=== PATIENT | male | born 1965 | race Caucasian/White ===

== ENCOUNTER → 2016-07-11 | Outpatient (REF) | payer OTHER | LOC: M LAB REF 16:30 | PROVIDERS: ATTEND Physician Assistant | DX: L02.01 Cutaneous abscess of face (principal) ==

== ENCOUNTER → 2016-12-29 | Outpatient (REF) | payer OTHER ==
[2016-12-29 12:59] LABS: ALBUMIN 3.8 GM/DL (3.2-5.2); ALBUMIN/GLOBULIN RATIO 1.03 (1.00-1.93); ALKALINE PHOSPHATASE 65 U/L (45-117); ALT/SGPT 39 U/L (12-78); ANION GAP 6 MEQ/L (8-16); AST/SGOT 23 U/L (15-37); BILIRUBIN,TOTAL 0.5 MG/DL (0.2-1.0); BLOOD UREA NITROGEN 21 MG/DL (7-18); CARBON DIOXIDE LEVEL 27 MEQ/L (21-32); CHLORIDE LEVEL 108 MEQ/L (98-107); CHOLESTEROL LEVEL 179 MG/DL (<200); FREE T4 1.01 NG/DL (0.76-1.46); GLOMERULAR FILTRATION RATE > 60.0 (>56); GLUCOSE, FASTING 80 MG/DL (70-105); POTASSIUM SERUM 4.4 MEQ/L (3.5-5.1); SODIUM LEVEL 141 MEQ/L (136-145); TOTAL PROTEIN 7.5 GM/DL (6.4-8.2); TRIGLYCERIDES LEVEL 87 MG/DL (<150)
[2016-12-29 13:03] LABS: LYMPH % 29.4 % (24.0-44.0); MEAN CORPUSCULAR HEMOGLOBIN 29.6 pg (27.0-33.0); MEAN CORPUSCULAR HGB CONC 34.8 g/dl (32.0-36.5); MEAN CORPUSCULAR VOLUME 85.1 fl (80.0-96.0); MONO % 8.9 % (0.0-5.0); NEUTROPHILS % 59.1 % (36.0-66.0); PLATELET COUNT, AUTOMATED 234 k/mm3 (150-450); RED CELL DISTRIBUTION WIDTH 12.9 % (11.5-14.5)
[2016-12-29 13:04] LABS: ADD MANUAL DIFFER NO; ADD MORPHOLOGY? NO; BASO # 0.1 K/mm3 (0.0-0.2); DIFF SLIDE NUMBER 146; LARGE UNSTAINED CELL # 0.1 K/mm3 (0.0-0.4); LARGE UNSTAINED CELL % 1.5 % (0.0-4.0); LYMPH # 1.8 K/mm3 (1.5-4.5); MONO # 0.5 K/mm3 (0.0-0.8); NEUTROPHILS # 3.6 K/mm3 (1.8-7.7)
== END ==
LOC: M SFHCPLAZ 08:32
PROVIDERS: ATTEND Nurse Practitioner Family
DX: B99.9 Unspecified infectious disease (principal); Z13.1 Encounter for screening for diabetes mellitus; Z13.220 Encounter for screening for lipoid disorders

== ENCOUNTER 2017-04-10 12:16 | Day surgery (SDC) | payer BC, OTHER ==
[~2017-04-10] VITALS: Ht 182.9 cm; Wt 112.5 kg
[~2017-04-10 12:16] MED LIST: PROPOFOL 200 MG/20 ML VIAL As Ordered ONE
[2017-04-10] MEDS ORDERED: NS 1,000 ML IV ONE (12:45)
--- NOTE | 2017-04-10 13:17 | ROOR ---
Patient Name: Jovan Pederson Procedure Date: 04/10/2017 12:58 PM Date of : 1965 Age: 51 Room: [facility] Gender: Male Note Status: Finalized Procedure: Colonoscopy Indications: Screening for colorectal malignant neoplasm Providers: Arun MELARA MD Referring MD: Ofe Otoole [facility] Requesting Provider: Medicines: Monitored Anesthesia Care Complications: No immediate complications. Procedure: Pre-Anesthesia Assessment: - The heart rate, respiratory rate, oxygen saturations, blood pressure, adequacy of pulmonary ventilation, and response to care were monitored throughout the procedure. The Colonoscope was introduced through the anus and advanced to the cecum, identified by appendiceal orifice and ileocecal valve. The colonoscopy was performed without difficulty. The patient tolerated the procedure well. The quality of the bowel preparation was good. Findings: The perianal and digital rectal examinations were normal. Two pedunculated polyps were found in the mid sigmoid colon and distal sigmoid colon. The polyps were 5 mm in size. These polyps were removed with a cold snare. Resection and retrieval were complete. To prevent bleeding after the polypectomy, two hemostatic clips were successfully placed. There was no bleeding at the end of the procedure. A 4 mm polyp was found in the splenic flexure. The polyp was sessile. The polyp was removed with a cold snare. Resection and retrieval were complete. Small Internal Hemorrhoids. The exam was otherwise without abnormality on direct and retroflexion views. Impression: - Two 5 mm polyps in the mid sigmoid colon and in the distal sigmoid colon, removed with a cold snare. Resected and retrieved. Clips were placed. - One 4 mm polyp at the splenic flexure, removed with a cold snare. Resected and retrieved. - Small Internal Hemorrhoids. - The examination was otherwise normal on direct and retroflexion views. Recommendation: - Repeat colonoscopy in 3 years for surveillance. Arun Melara MD Arun MELARA MD 04/10/2017 1:17:19 PM This report has been signed electronically. Number of Addenda: 0 Note Initiated On: 04/10/2017 12:58 PM Estimated Blood Loss: Estimated blood loss: none.
== END 2017-04-10 13:54 | disposition home or self-care (01) ==
LOC: M OPP 12:16
PROVIDERS: ATTEND Internal Medicine Gastroenterology
DX: Z12.11 Encounter for screening for malignant neoplasm of colon (principal); D12.5 Benign neoplasm of sigmoid colon; D12.3 Benign neoplasm of transverse colon; K64.8 Other hemorrhoids; Z86.14 Personal history of Methicillin resistant Staphylococcus aureus infection

== ENCOUNTER → 2020-05-26 | Outpatient (REF) | payer OTHER ==
[2020-05-26 15:14] LABS: APPEARANCE, URINE CLOUDY (CLEAR); BACTERIA, URINE AUTO NEGATIVE (NEGATIVE); BILIRUBIN, URINE AUTO NEGATIVE (NEGATIVE); BLOOD, URINE BLOOD 3+ (NEGATIVE); COLOR, URINE AMBER (YELLOW); GLUCOSE, URINE (UA) AUTO NEGATIVE (NEGATIVE); KETONE, URINE AUTO NEGATIVE (NEGATIVE); LEUKOCYTE ESTERASE, URINE AUTO NEGATIVE (NEGATIVE); MUCUS, URINE MODERATE (NEGATIVE); NITRITE, URINE AUTO NEGATIVE (NEGATIVE); PROTEIN, URINE AUTO 1+ mg/dL (NEGATIVE); RBC, URINE AUTO 106 /HPF (0-3); SPECIFIC GRAVITY URINE AUTO 1.027 (1.002-1.035); SQUAMOUS EPITHELIAL CELL UR AU 0 /HPF (0-6); UROBILINOGEN, URINE AUTO 0.2 mg/dL (0.0-2.0); WBC, URINE AUTO 4 /HPF (0-3)
[2020-05-26 15:18] LABS: BASO # 0.1 10^3/uL (0.0-0.2); BASO % 0.7 % (0.0-1.0); EOS # 0.2 10^3/uL (0.0-0.5); EOS % 2.3 % (0.0-3.0); HEMATOCRIT 48.4 % (42.0-52.0); HEMOGLOBIN 16.3 g/dl (13.5-17.5); LYMPH # 2.1 10^3/uL (1.5-5.0); LYMPH % 28.4 % (24.0-44.0); MEAN CORPUSCULAR HEMOGLOBIN 29.5 pg (27.0-33.0); MEAN CORPUSCULAR HGB CONC 33.7 g/dl (32.0-36.5); MEAN CORPUSCULAR VOLUME 87.5 fl (80.0-96.0); MONO # 0.6 10^3/uL (0.0-0.8); NEUTROPHILS # 4.4 10^3/uL (1.5-8.5); NEUTROPHILS % 60.5 % (36.0-66.0); PLATELET COUNT, AUTOMATED 322 10^3/uL (150-450); RED BLOOD COUNT 5.53 10^6/uL (4.30-6.10); WHITE BLOOD COUNT 7.3 10^3/uL (4.0-10.0)
[2020-05-26 15:53] LABS: ALBUMIN 3.8 GM/DL (3.2-5.2); ALT/SGPT 60 U/L (12-78); BILIRUBIN,TOTAL 0.6 MG/DL (0.2-1.0); BLOOD UREA NITROGEN 15 MG/DL (7-18); CARBON DIOXIDE LEVEL 30 MEQ/L (21-32); CHLORIDE LEVEL 106 MEQ/L (98-107); CREATININE FOR GFR 1.15 MG/DL (0.70-1.30); GLOMERULAR FILTRATION RATE > 60.0 (>56); GLUCOSE, FASTING 82 MG/DL (70-100); POTASSIUM SERUM 4.2 MEQ/L (3.5-5.1); SODIUM LEVEL 139 MEQ/L (136-145); TOTAL PROTEIN 8.3 GM/DL (6.4-8.2)
[2020-05-26 16:00] LABS: ERYTHROCYTE SEDIMENTATION RATE 18 mm/hr (0-20)
== END ==
LOC: M SFHCPLAZ 14:01
PROVIDERS: ATTEND Nurse Practitioner Family
DX: R31.0 Gross hematuria (principal); G43.009 Migraine without aura, not intractable, without status migrainosus

== ENCOUNTER → 2020-06-12 | Outpatient (CLI) | payer BC, OTHER ==
[~2020-06-12] MED LIST changes: +ISOVUE-370 76% 100ML VIAL As Ordered ONE; -PROPOFOL 200 MG/20 ML VIAL As Ordered ONE
--- NOTE | 2020-06-14 04:01 | REP ---
INDICATION: GROSS HEMATURIA. COMPARISON: None TECHNIQUE: Axial precontrast, contrast-enhanced and delayed images from the lung bases to the pubic symphysis using 100 cc Isovue 370 intravenous contrast material. Coronal and sagittal reformations obtained. This CT examination was performed using the following dose reduction techniques: Automated exposure control, adjustment of mA and/or kv according to the patient's size, and the use of iterative reconstruction technique. FINDINGS: The kidneys demonstrate relatively symmetric cortical lobulations along with 1.7 cm simple right cortical cyst and 9 mm simple cortical left renal cyst. No hydroureteronephrosis, nephroureterolithiasis, perinephric stranding or obvious renal mass lesion. Kidneys demonstrate symmetric enhancement and symmetric excretion to the collecting system. Liver demonstrates mild diffuse fatty infiltration without focal hepatic lesion. The spleen, pancreas, gallbladder, and bilateral adrenal glands are normal. The enteric system including stomach, small, and large bowel appears normal. No evidence for obstruction or acute inflammatory process. Normal terminal ileum and appendix are identified in the right lower quadrant. Scattered colonic diverticula noted without acute diverticulitis. Pelvis demonstrates normal bladder and mildly prominent prostate gland measuring 4.6 cm diameter. Small fat containing inguinal hernias are suggested. No ascites. No free air. No intraperitoneal or retroperitoneal adenopathy. Abdominal aorta and vasculature appear normal. Musculoskeletal structures are intact and without acute osseous abnormality. Lung bases are clear. Visualized heart and pericardium normal. IMPRESSION: 1. Kidneys include solitary bilateral benign appearing cysts. No further urinary tract pathology appreciated. 2. Mild hepatosteatosis. 3. Colonic diverticula without acute diverticulitis. 4. Prominent prostate gland. <Electronically signed by Mode Walden > 06/14/20 [id number]
== END ==
LOC: M RAD 07:51
PROVIDERS: ATTEND Specialist
DX: N28.1 Cyst of kidney, acquired (principal); R31.0 Gross hematuria
CPT/HCPCS: 74178; Q9967

== ENCOUNTER → 2020-06-28 | Outpatient (CLI) | payer BC, OTHER | END | disposition home or self-care (01) | LOC: M LABSMTC 09:26 | PROVIDERS: ATTEND Anesthesiology | DX: Z01.812 Encounter for preprocedural laboratory examination (principal); Z11.52 Encounter for screening for COVID-19 ==

== ENCOUNTER → 2020-07-01 | Outpatient (CLI) | payer BC, OTHER ==
--- NOTE | 2020-07-01 16:08 | REPPI ---
INDICATION: M54.2 NECK PAIN. COMPARISON: None. TECHNIQUE: Eight views cervical spine performed. FINDINGS: There is no compression fracture. There is normal alignment and the cervical lordosis with no prevertebral soft tissue swelling. There is no subluxation with flexion and extension. Mild anterior spurring and ligamentous calcification is seen diffusely. There is mild disc space narrowing and subchondral sclerosis at C6-7. There is diffuse narrowing, spurring and sclerosis at the posterior facet joints. There may be mild bilateral foraminal narrowing at C6-7 due to uncovertebral spurring. IMPRESSION: Relatively mild diffuse degenerative changes most significantly at C6-7 as discussed above. <Electronically signed by Orestes Up > 07/01/20 [id number]
== END ==
LOC: M PLAIMG 11:40
PROVIDERS: ATTEND Nurse Practitioner Family
DX: M50.323 Other cervical disc degeneration at C6-C7 level (principal)

== ENCOUNTER 2020-07-03 10:58 | Day surgery (SDC) | payer BC, OTHER ==
[~2020-07-03] VITALS: Ht 182.9 cm; Wt 116.9 kg
[~2020-07-03 10:58] MED LIST changes: -ISOVUE-370 76% 100ML VIAL As Ordered ONE; +NS 1,000 ML IV ONE
--- OUTSIDE RECORDS SUMMARY | 2020-07-03 11:02 | CCD | Continuity of Care Document ---
Author Author Jovan [facility] Organization Unknown Address [address], [address] [place] [address] Phone [phone] Care Team Providers Care Ammonia Box Operator Name Role Phone Rylee Whiteside AUTM Problems Description No Active Problems Social History Type Date Description Comments Sex Unknown ETOH Use 1-2 A Week Tobacco Use Start: Unknown Non Smoker Recreational Drug Use Denies Drug Use Allergies, Adverse Reactions, Alerts Description No Known Drug Allergies Medications Active Medications SIG Qnty Indications Ordering Provide r Date Clenpiq 10-3.5-12mg-GM -GM/160ML S olution take as directed per doctor's bowel prep instructions. 320ml Z12.1 1 Arun Melara MD 04/15/2020 Milk Of Magnesia 1200mg/15ML Suspe nsion take 45 milliliters by mouth as directed on colonoscopy prep sheet. Z12.11 Arun Melara MD 04/15/2020 History Medications No Active Medications Unknown 01/2020 - 04/15/2020 Immunizations Description No Information Available Vital Signs Date Vital Result Comment 04/15/2020 8:32am BP Systolic 142 mmHg BP Diastolic 92 mmHg Height 72 inches 6'0" Weight 258.00 lb BMI (Body Mass Index) 35.0 kg/m2 [place] Body Weight 178 lb Weight 117.029 kg BSA (Body Surface Area) 2.37 m2 03/07/2017 10:58am BP Systolic 162 mmHg BP Diastolic 92 mmHg Height 72 inches 6'0" Weight 250.00 lb BMI (Body Mass Index) 33.9 kg/m2 [place] Body Weight 178 lb Weight 113.400 kg BSA (Body Surface Area) 2.34 m2 Results Description No Information Available Procedures Description No Information Available Medical Devices Description No Information Available Encounters Description No Information Available Assessments Date Code Description Provider 04/15/2020 Z12.11 Encounter for screening for tanya gnant neoplasm of colon Mindy Margarette SELINA Mccain 04/15/2020 Z86.010 Personal history of colonic poly ps Mindy Margarette SELINA Mccain Plan of Treatment 04/15/2020 - Mindy Margarette SELINA Mccain* Z12.11 Encounter for screening for malignant neoplasm of colon * Z86.010 Personal history of colonic polyps * * New Medication:* Clenpiq 10-3.5-12 mg-GM -GM/160ML * Milk Of Magnesia 1200 mg/15ML * New Orders:* Colonoscopy, Ordered: 04/15/20 * Comments:* Will arrange for colonoscopy. Reviewed risks and benefits of the procedure, as well as other options, with the patient. Bowel prep procedure was discussed with patient, as well as risks and side effects associated with the bowel prep. Patient verbalized understanding of all of the above and is in agreement to proceed. Patient will seek medical attention for any acute changes. Will monitor. * Follow up:* As scheduled, sooner if needed. Functional Status Description No Information Available Mental Status Description No Information Available Referrals Description No Information Available
--- OUTSIDE RECORDS SUMMARY | 2020-07-03 11:02 | CCD ---
Author Author [facility] Organization [facility] Address Unknown Phone Unavailable Care Team Providers Care Automotive Machinist Name Role Phone Sonia Duenas PROBLEMS Type Condition ICD9-CM Code [id number] Code Onset Dates Condition S tatus SNOMED Code Notes Problem Migraine without aura and without status migrain osus, not intractable G43.009 Active 726993251 Problem Gross hematuria R31.0 Active 140964861 ALLERGIES No Known Allergies ENCOUNTERS from 1965 to 2020-05-30 Encounter Location Date Provider Diagnosis [address] [address] May, 021 Sonia Duenas Gross hematuria R31.0 and Migraine without aura and without status migrainosus, not intractable G43.009 IMMUNIZATIONS Vaccine Route Administration Date Status Influenza (6mo & up) Fluzone Unknown Feb 06, 2017 Ref used SOCIAL HISTORY Tobacco Use: Social History Observation Description Date Details (start date - stop date) Never Smoker Sex Assigned At : Social History Observation Description Sex Assigned At Unknown Education: Question Answer Notes Level of Education: Finished High School Audit Question Answer Notes Total Score: 1 Interpretation: Alcohol Education Language: Question Answer Notes Languages spoken: Czech Baptist: Question Answer Notes Baptist 21 Scientology Sexual Hx: Question Answer Notes Had sex in the last 12 months (vaginal, oral, or anal)? No Have you ever had an STD? No Drug and Alcohol Question Answer Notes Total Score: 0 Interpretation: No problems reported Alcohol Screening: Question Answer Notes Did you have a drink containing alcohol in the past year? Ye s Points 1 Interpretation Negative How often did you have six or more drinks on one occas ion in the past year? Never (0 points) How many drinks did you have on a typica l day when you were drinking in the past year? 1 or 2 (0 points) How often did you have a drink containing alcohol in t he past year? Monthly or less (1 point) BMI Care Goal Follow-Up Question Answer Notes Above Normal BMI Follow-Up Lifestyle education regarding t Tobacco Use: Question Answer Notes Are you a: never smoker never smoker REASON FOR REFERRAL No Information VITAL SIGNS Weight 264 lbs May, Height 72 in May, BMI 35.80 kg/m2 May, Heart Rate 90 /min May, Respiratory Rate 20 /min May, Temperature 98.2 degrees Fahrenheit May, Oximetry 96 May, Blood pressure systolic 134 mm Hg May, Blood pressure diastolic 80 mm Hg May, MEDICATIONS Medication SIG (Take, Route, Frequency, Duration) Notes Start Da te End Date Status Chlorhexidine Gluconate 4 % as directed Externally: neck MWF for 30 day(s) Not-Taking PROCEDURES No Information RESULTS Component Value Reference Range CBC with Differential Reviewed date:05/27/2020 07:52:59 Interpretation: Performing Lab:[facility] [address] [address] , ,[place] [address] WHITE BLOOD COUNT 7.3 4.0-10.0 RED BLOOD COUNT 5.53 4.30-6.10 HEMOGLOBIN 16.3 13.5-17.5 HEMATOCRIT 48.4 42.0-52.0 MEAN CORPUSCULAR VOLUME 87.5 80.0-96.0 MEAN CORPUSCULAR HEMOGLOBIN 29.5 27.0-33.0 MEAN CORPUSCULAR HGB CONC 33.7 32.0-36.5 RED CELL DISTRIBUTION WIDTH 12.4 11.5-14.5 PLATELET COUNT, AUTOMATED 322 150-450 NEUTROPHILS % 60.5 36.0-66.0 LYMPH % 28.4 24.0-44.0 MONO % 8.0 0.0-5.0 EOS % 2.3 0.0-3.0 BASO % 0.7 0.0-1.0 NEUTROPHILS # 4.4 1.5-8.5 LYMPH # 2.1 1.5-5.0 MONO # 0.6 0.0-0.8 EOS # 0.2 0.0-0.5 BASO # 0.1 0.0-0.2 Comprehensive Metabolic Profile (CMP) Reviewed date:05/27/2020 07:52:59 Interpretation: Performing Lab:[facility] [address] [place] [id number] , ,[place] [id number] GLUCOSE, FASTING 82 70-100 BLOOD UREA NITROGEN 15 7-18 CREATININE FOR GFR 1.15 0.70-1.30 GLOMERULAR FILTRATION RATE > 60.0 >56 SODIUM LEVEL 139 136-145 POTASSIUM SERUM 4.2 3.5-5.1 CHLORIDE LEVEL 106 98-107 CARBON DIOXIDE LEVEL 30 21-32 CALCIUM LEVEL 9.0 8.5-10.1 AST/SGOT 35 7-37 ALT/SGPT 60 12-78 ALKALINE PHOSPHATASE 91 45-117 BILIRUBIN,TOTAL 0.6 0.2-1.0 TOTAL PROTEIN 8.3 6.4-8.2 ALBUMIN 3.8 3.2-5.2 ALBUMIN/GLOBULIN RATIO 0.8 ERYTHROCYTE SEDIMENTATION RATE Reviewed date:05/27/2020 07:52:59 Interpretation: Performing Lab:[facility] [address] [place] [id number] , ,[place] [address] ERYTHROCYTE SEDIMENTATION RATE 18 0-20 PSA SCREENING Reviewed date:05/27/2020 07:52:59 Interpretation: Performing Lab:[facility] [address] [place] [address] , ,[place] [address] PSA SCREENING 0.95 < 4.00 URINE CULTURE Reviewed date:05/27/2020 17:17:01 Interpretation:Negative Performing Lab:[facility] [address] [place] [address] , ,[place] [id number] UA URINALYSIS Reviewed date:05/27/2020 07:52:59 Interpretation: Performing Lab:[facility] [address] [facility] [id number] , ,[place] [id number] 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, No flu shot MEDICAL (GENERAL) HISTORY Type Description Date Medical History headaches Surgical History Tonsilectomy age 6 Surgical History All four wisdom teeth extracted early 18 s Surgical History colonoscopy with polyps - adenomatous, R eindl, repeat 3YRS 04/10/17 Goals Section No Information Health Concerns No Information MEDICAL EQUIPMENT No Information MENTAL STATUS No Information FUNCTIONAL STATUS No Information ASSESSMENTS Encounter Date Diagnosis Assessment Notes Treatment Notes Treatm ent Clinical Notes May, Gross hematuria (ICD-10 - R31.0) advised labs and urine today - f/up as indicated May, Migraine without aura and wi thout status migrainosus, not intractable (ICD-10 - G43.009) check labs, advised to keep diary of headaches, given list of migraine triggers. Consider neurology referral PLAN OF TREATMENT Treatment Notes Assessment Notes Clinical Notes Gross hematuria advised labs and urine today - f/up as i ndicated Migraine without aura and without status migrainosus, not intractable check labs, advised to keep diary of headaches, given list of migraine triggers. Consider neurology referral Treatment Notes Test Name Order Date NON PLASTER PATTERN CASTER CYTOLOGY REQ FOR SERVI 2020-05-30 Next Appt Details 2-3 Weeks(30min) Reason:f/u after labs Provider Name:Nati Gómez, 01:30:00 PM, [address], [place], [address], Provider Name:Sonia Duenas, 2020-07-01 11:0 0:00 AM, [address] [place], [address], Follow Up:2-3 Weeks(30min)f/u after labs Insurance Providers Payer Name Payer Address Payer Phone Insured Name Patient Relati onship to Insured Coverage Start Date Coverage End Date [facility] [address] [facility] [id number] JOVAN FELICIANO self
--- OUTSIDE RECORDS SUMMARY | 2020-07-03 11:02 | CCD ---
Author Author [facility] Organization [facility] Address Unknown Phone Unavailable Care Team Providers Care Hot Mill Roller Name Role Phone Rico Nati Unavailable PROBLEMS Type Condition ICD9-CM Code TJO62-OD Code Onset Dates Condition S tatus W/U Status Risk SNOMED Code Notes Problem Gross hematuria R31.0 Active confirmed [id number] Problem Erectile dysfunction, unspecified erectile dysfunction typ e N52.9 Active confirmed [id number] Problem Migraine without aura and without status migrain osus, not intractable G43.009 Active confirmed 846557952 ALLERGIES No Known Allergies ENCOUNTERS from 1965 to 2020-06-12 Encounter Location Date Provider Diagnosis [facility] [address] [place] [address] Jun Nati Gómez Gross hematuria R31.0 and Erectile dysfu nction, unspecified erectile dysfunction type N52.9 IMMUNIZATIONS Vaccine Route Administration Date Status Influenza (6mo & up) Fluzone Unknown Feb 06, 2017 Ref used SOCIAL HISTORY Tobacco Use: Social History Observation Description Date Details (start date - stop date) Uses tobacco in other forms Sex Assigned At : Social History Observation Description Sex Assigned At Unknown Education: Question Answer Notes Level of Education: Finished High School Audit Question Answer Notes Interpretation: Alcohol Education Total Score: 1 Language: Question Answer Notes Languages spoken: Spanish Mormonism: Question Answer Notes Mormonism 21 Confucianism Sexual Hx: Question Answer Notes Had sex in the last 12 months (vaginal, oral, or anal)? No Have you ever had an STD? No Drug and Alcohol Question Answer Notes Interpretation: No problems reported Total Score: 0 Alcohol Screening: Question Answer Notes Did you have a drink containing alcohol in the past year? No Points 0 Interpretation Negative BMI Care Goal Follow-Up Question Answer Notes Above Normal BMI Follow-Up Lifestyle education regarding t Tobacco Use: Question Answer Notes Are you a: Uses tobacco in other forms chews REASON FOR REFERRAL No Information VITAL SIGNS Weight 258.2 lbs Jun, Height 72 in Jun, BMI 35.01 kg/m2 Jun, Heart Rate 97 /min Jun, Respiratory Rate 18 /min Jun, Oximetry 96 Jun, Blood pressure systolic 160 mm Hg Jun, Blood pressure diastolic 82 mm Hg Jun, MEDICATIONS Medication SIG (Take, Route, Frequency, Duration) Notes Start Da te End Date Status Chlorhexidine Gluconate 4 % as directed Externally: neck MWF for 30 day(s) Not-Taking PROCEDURES No Information RESULTS No Results REASON FOR VISIT timothy hematuria MEDICAL (GENERAL) HISTORY Type Description Date Medical History headaches Medical History hematuria Surgical History Tonsilectomy age 6 Surgical History All four wisdom teeth extracted early 18 s Surgical History colonoscopy with polyps - adenomatous, R eindl, repeat 3YRS 04/10/17 Goals Section No Information Health Concerns No Information MEDICAL EQUIPMENT No Information MENTAL STATUS No Information FUNCTIONAL STATUS No Information ASSESSMENTS Encounter Date Diagnosis Assessment Notes Treatment Notes Treatm ent Clinical Notes Jun, Gross hematuria (ICD-10 - R31.0) Plan: -Schedule CT urogram -Schedule cystoscopy and alternatives, risks, benefits were discussed and informed consent obtained -Depending on the findings above also discuss options for his erectile dysfunction This was dictated with Butch and not proofread for errors Jun, Erectile dysfunction, unspec ified erectile dysfunction type (ICD-10 - N52.9) PLAN OF TREATMENT Treatment Notes Assessment Notes Clinical Notes Gross hematuria Plan:-Schedule CT ur ogram-Schedule cystoscopy and alternatives, risks, benefits were discussed and informed consent obtained- Depending on the findings above also discuss options for his erectile dysfunc tionThis was dictated with Butch and not proofread for errors Treatment Notes Test Name Order Date CT Scan : Urogram (Abdomen/Pelvis) 2020-06-09 Next Appt Details Cystoscopy Reason: Provider Name:Sonia Duenas, 2020-07-01 11:0 0:00 AM, [address] [place], [address], Provider Name:Kiran Pappas, 2020-07-06 01:00:00 PM, [address], [place], [address], Insurance Providers Payer Name Payer Address Payer Phone Insured Name Patient Relati onship to Insured Coverage Start Date Coverage End Date [facility] [address] [facility] [id number] JOVAN FELICIANO self
--- OUTSIDE RECORDS SUMMARY | 2020-07-03 11:02 | CCD ---
Author Author [facility] Organization [facility] Address Unknown Phone Unavailable Support Name Relationship Address Phone [employer] Next Of Kin [address] [place] [address] [facility] DEPT OF CORRECTIONS Next Of Kin [address] [place] [address] JOVAN PEDERSON III Next Of Kin [address] [place] [address] STARR PEDERSON Next Of Kin [address] [place] [address] Jovan Pederson III ECON [address] [place] [address] Unavailable Jason Pederson Unknown Unavailable Re-disclosure Warning The records that you are about to access may contain information from federally-assisted alcohol or drug abuse programs. If such information is present, then the following federally mandated warning applies: This information has been disclosed to you from records protected by federal confidentiality rules (42 CFR part 2). The federal rules prohibit you from making any further disclosure of this information unless further disclosure is expressly permitted by the written consent of the person to whom it pertains or as otherwise permitted by 42 CFR part 2. A general authorization for the release of medical or other information is NOT sufficient for this purpose. The Federal rules restrict any use of the information to criminally investigate or prosecute any alcohol or drug abuse patient.The records that you are about to access may contain highly sensitive health information, the redisclosure of which is protected by Article 27-F of the [facility] Public Health law. If you continue you may have access to information: Regarding HIV / AIDS; Provided by facilities licensed or operated by the [facility] Office of Mental Health; or Provided by the [facility] Office for People With Developmental Disabilities. If such information is present, then the following [place] State mandated warning applies: This information has been disclosed to you from confidential records which are protected by state law. State law prohibits you from making any further disclosure of this information without the specific written consent of the person to whom it pertains, or as otherwise permitted by law. Any unauthorized further disclosure in violation of state law may result in a fine or alf sentence or both. A general authorization for the release of medical or other information is NOT sufficient authorization for further disc losure. Family History Family Member Name Family Member Gender Family Member Status Date o f Status Description Data Source(s) Unknown Unknown Problem MEDENT ([facility], ) Unknown Unknown Problem MEDENT ([facility]) mother, father Encounters Encounter Providers Location Date Indications Data Source(s ) Outpatient [address] [facility] [id number] 06/09/2020 12:00:00 AM EST eCW1 ([facility]) Unknown [address] [facility] [address] [id number] 05/27/2020 12:00:00 AM EST eCW1 ([facility]) Outpatient [address] [facility] [address] [address] 05/26/2020 12:00:00 AM EST eCW1 ([facility]) Medications Medication Brand Name Start Date Product Form Dose Route Admi nistrative Instructions Pharmacy Instructions Status Indications Reaction Description Data Source(s) No Active Medications 04/15/2020 12:00:00 AM EST completed MEDENT ([facility], ) Magnesium Hydroxide 80 MG/ML Oral Suspension Milk Of Magnesi a 04/15/2020 12:00:00 AM EST ORAL active M EDENT ([facility], ) Clenpiq Clenpiq 04/15/2020 12:00:00 AM EST active MEDENT ([facility], ) 10 mg-3.5 gram -12 gram/160 mL 04/15/2020 12:00:00 AM EST so lution 320 TAKE DIRECTED PER DOCTORS BOWEL PREP INSTRUCTIONS TAKE DIRECTED PER DOCTORS BOWEL PREP INSTRUCTIONS SOLD: 04/15/2020 [facility] Insurance Providers Payer name Policy type / Coverage type Policy ID Covered constitution party ID Covered constitution party's relationship to joaquin Policy Joaquin Plan Information [facility] [id number] SP [id number] BCBS EMPIRE CR DIV [id number] SP [id number] BCBS EMPIRE CR DIV [id number] SP [id number] [facility] [id number] SP [id number] [facility] O [id number] S [id number] BCBS E[employer]IRE CR DIV [id number] [employer] [id number] SP [id number] [facility] Health Maintenance Organization (HMO) [id number] Self [id number] [facility] [id number] Self [id number] [facility] [id number] Self [id number] [facility] INSURANCE FUND [id number] SP [id number] [facility] [place] Commercial [id number] Self [id number] [facility] Commercial Self Problems, Conditions, and Diagnoses Code Display Name Description Problem Type Effective Dates Data Source(s) N52.9 [id number] Erectile dysfunction, unspecifie d erectile dysfunction type Problem 06/09/2020 12:00:00 AM EST eCW1 ([facility]) G43.009 892508960 Migraine without aur a and without status migrainosus, not intractable Problem 05/26/2020 12:00:00 AM EST eCW1 ([facility]) R31.0 [id number] Gross hematuria Problem 05/26/2020 12:00:00 AM EST eCW1 ([facility]) Results ID Date Data Source [id number] 06/28/2020 11:00:00 AM EST [facility] Name Value Range Interpretation Code Description Data Kate rce(s) Supporting Document(s) SARS coronavirus 2 RNA Not Detected [facility] This lab was ordered by [facility] and reported by [facility]. ID Date Data Source UA URINALYSIS 05/26/2020 12:00:00 AM EST eCW1 ([facility]) Name Value Range Interpretation Code Description Data Ktae rce(s) Supporting Document(s) UA URINALYSIS eCW1 ([facility]) ID Date Data Source URINE CULTURE 05/26/2020 12:00:00 AM EST eCW1 ([facility]) Name Value Range Interpretation Code Description Data Kate rce(s) Supporting Document(s) URINE CULTURE eCW1 ([facility]) ID Date Data Source PSA SCREENING 05/26/2020 12:00:00 AM EST eCW1 ([facility]) Name Value Range Interpretation Code Description Data Kate rce(s) Supporting Document(s) 0.95 < 4.00 PSA SCREENING eCW1 ([facility]) ID Date Data Source ERYTHROCYTE SEDIMENTATION RATE 05/26/2020 12:00:00 AM EST eC W1 ([facility]) Name Value Range Interpretation Code Description Data Kate rce(s) Supporting Document(s) 18 0-20 ERYTHROCYTE SEDIMENTATION RATE eCW1 ([facility]) ID Date Data Source Comprehensive Metabolic Profile (CMP) 05/26/2020 12:00:00 AM EST eCW1 ([facility]) Name Value Range Interpretation Code Description Data Kate rce(s) Supporting Document(s) 15 7-18 BLOOD UREA NITROGEN eCW1 ([facility]) 1.15 0.70-1.30 CREATININE FOR GFR [facility] 82 70-100 GLUCOSE, FASTING eCW1 ([facility]) > 60.0 >56 GLOMERULAR FILTRATION RATE eCW 1 ([facility]) 139 136-145 SODIUM LEVEL eCW1 ([facility]) 4.2 3.5-5.1 POTASSIUM SERUM eCW1 ([facility]) 106 98-107 CHLORIDE LEVEL eCW1 ([facility]) 60 12-78 ALT/SGPT eCW1 ([facility]) 9.0 8.5-10.1 CALCIUM LEVEL eCW1 ([facility]) 35 7-37 AST/SGOT eCW1 ([facility]) 30 21-32 CARBON DIOXIDE LEVEL eCW1 ([facility]) 91 45-117 ALKALINE PHOSPHATASE eCW1 ([facility]) 0.6 0.2-1.0 BILIRUBIN,TOTAL eCW1 ([facility]) 8.3 6.4-8.2 TOTAL PROTEIN eCW1 ([facility]) 3.8 3.2-5.2 ALBUMIN eCW1 ([facility]) 0.8 ALBUMIN/GLOBULIN RATIO eCW1 ([facility]) ID Date Data Source CBC with Differential 05/26/2020 12:00:00 AM EST [facility] Name Value Range Interpretation Code Description Data Kate rce(s) Supporting Document(s) 7.3 4.0-10.0 WHITE BLOOD COUNT eCW1 ([facility]) 16.3 13.5-17.5 HEMOGLOBIN eCW1 ([facility]) 5.53 4.30-6.10 RED BLOOD COUNT eCW1 ([facility]) 87.5 80.0-96.0 MEAN CORPUSCULAR VOLUME e CW1 ([facility]) 48.4 42.0-52.0 HEMATOCRIT eCW1 ([facility]) 29.5 27.0-33.0 MEAN CORPUSCULAR HEMOGLOB IN eCW1 ([facility]) 33.7 32.0-36.5 MEAN CORPUSCULAR HGB CONC eCW1 ([facility]) 322 150-450 PLATELET COUNT, AUTOMATED eCW1 ([facility]) 28.4 24.0-44.0 LYMPH % eCW1 ([facility]) 12.4 11.5-14.5 RED CELL DISTRIBUTION WID TH eCW1 ([facility]) 60.5 36.0-66.0 NEUTROPHILS % eCW1 ([facility]) 4.4 1.5-8.5 NEUTROPHILS # eCW1 ([facility]) 2.3 0.0-3.0 EOS % eCW1 ([facility]) 0.7 0.0-1.0 BASO % eCW1 ([facility]) 8.0 0.0-5.0 MONO % eCW1 ([facility]) 0.1 0.0-0.2 BASO # eCW1 ([facility]) 0.6 0.0-0.8 MONO # eCW1 ([facility]) 0.2 0.0-0.5 EOS # eCW1 ([facility]) 2.1 1.5-5.0 LYMPH # eCW1 ([facility]) Procedure Social History Code Duration Value Status Description Data Source(s ) Smoking 06/09/2020 12:00:00 AM EST UNK completed eCW1 ([facility]) Smoking 05/26/2020 12:00:00 AM EST Never Smoker completed Never S moker eCW1 ([facility]) Smoking 05/26/2020 12:00:00 AM EST Never Smoker completed Never S moker eCW1 ([facility]) Vital Signs ID Date Data Source UNK Name Value Range Interpretation Code Description Data Source(s) Diastolic blood pressure 82 mm[Hg] 82 mm[Hg] eCW1 ([facility]) Systolic blood pressure 160 mm[Hg] 160 mm[Hg] e CW1 ([facility]) Respiratory rate 18 /min 18 /min eCW1 ([facility]) Heart rate 97 /min 97 /min eCW1 ([facility]) Body mass index (BMI) [Ratio] 35.01 kg/m2 35.01 kg/m2 W1 ([facility]) Body height 72 [in_i] 72 [in_i] eCW1 ([facility]) Body weight 258.2 [lb_av] 258.2 [lb_av] eCW1 ([facility]) Diastolic blood pressure 80 mm[Hg] 80 mm[Hg] eCW1 ([facility]) Systolic blood pressure 134 mm[Hg] 134 mm[Hg] e CW1 ([facility]) Body temperature 98.2 [degF] 98.2 [degF] eCW1 ( [facility]) Respiratory rate 20 /min 20 /min eCW1 ([facility]) Heart rate 90 /min 90 /min eCW1 ([facility]) Body mass index (BMI) [Ratio] 35.80 kg/m2 35.80 kg/m2 eCW1 ([facility]) Body height 72 [in_i] 72 [in_i] eCW1 ([facility]) Body weight 264 [lb_av] 264 [lb_av] eCW[facility] Body surface area Derived from formula 2.37 m2 2.37 m2 [facility] ([facility], ) Body weight 117.029 kg 117.029 kg [facility] ([facility]) [place] body weight 178 [lb_av] 178 [lb_av] MEDEN T ([facility]) Body mass index (BMI) [Ratio] 35.0 kg/m2 35.0 k g/m2 [facility] ([facility], ) Body weight 258.00 [lb_av] 258.00 [lb_av] [facility] Body height 72 [in_i] 72 [in_i] [facility] ([facility], ) 6'0" Diastolic blood pressure 92 mm[Hg] 92 mm[Hg] [facility] ([facility]) Systolic blood pressure 142 mm[Hg] 142 mm[Hg] Augustin GOMEZ ([facility], )
--- OUTSIDE RECORDS SUMMARY | 2020-07-03 11:02 | CCD ---
Author Author [facility] Organization [facility] Address Unknown Phone Unavailable Care Team Providers Care Liquid Fertilizer Servicer Name Role Phone Sonia Duenas PROBLEMS Type Condition ICD9-CM Code MRC94-QH Code Onset Dates Condition S tatus SNOMED Code Notes Problem Migraine without aura and without status migrain osus, not intractable G43.009 Active [id number] Problem Gross hematuria R31.0 Active [id number] ALLERGIES No Known Allergies ENCOUNTERS from 1965 to 2020-05-27 Encounter Location Date Provider Diagnosis [address] [address] May, 021 Sonia Duenas Gross hematuria R31.0 IMMUNIZATIONS Vaccine Route Administration Date Status Influenza [...] Education Language: Question Answer Notes Languages spoken: Kazakh Latter-Day: Question Answer Notes Latter-Day 21 [employer] Sexual Hx: Question Answer Notes Had sex [...] REASON FOR REFERRAL No Information VITAL SIGNS No information MEDICATIONS Medication SIG (Take, Route, Frequency, Duration) Notes Start Da te End Date Status Chlorhexidine Gluconate 4 % as directed Externally: neck MWF for 30 day(s) Not-Taking PROCEDURES No Information RESULTS No Results REASON FOR VISIT lab results MEDICAL (GENERAL) HISTORY Type Description Date Medical History headaches Surgical History Tonsilectomy age 6 Surgical History All four wisdom teeth extracted early 18 s Surgical History colonoscopy with polyps - adenomatous, R can, repeat 3YRS 04/10/17 Goals Section No Information Health Concerns No Information MEDICAL EQUIPMENT No Information MENTAL STATUS No Information FUNCTIONAL STATUS No Information ASSESSMENTS Encounter Date Diagnosis Assessment Notes Treatment Notes Treatm ent Clinical Notes May, Gross hematuria (ICD-10 - R31.0) PLAN OF TREATMENT Next Appt Details Provider Name:Sonia Duenas, 2020-07-01 11:0 0:00 AM, [address] [place], [address], Insurance Providers Payer Name Payer Address Payer Phone Insured Name Patient Relati onship to Insured Coverage Start Date Coverage End Date [facility] [address] [facility] [id number] JOVAN FELICIANO self
[2020-07-03] MEDS ORDERED: LIDOCAINE 2% 100MG/5ML SDV (FOR ANES.) As Ordered ONE (11:36)
[2020-07-03] MEDS ORDERED: propofoL 200 MG/20 ML VIAL As Ordered ONE (11:36)
--- NOTE | 2020-07-03 12:57 | ROOR ---
Patient Name: Jovan Pederson Procedure Date: 07/03/2020 12:29 PM Date of : 1965 Age: 54 Room: [facility] Gender: Male Note Status: Finalized Procedure: Colonoscopy Indications: High risk colon cancer surveillance: Personal history of colonic polyps, Last colonoscopy: April 2017 Providers: Arun MELARA MD Referring MD: Sonia Duenas NP Requesting Provider: Medicines: Monitored Anesthesia Care Complications: No immediate complications. Procedure: Pre-Anesthesia Assessment: - The heart rate, respiratory rate, oxygen saturations, blood pressure, adequacy of pulmonary ventilation, and response to care were monitored throughout the procedure. The Colonoscope was introduced through the anus and advanced to the terminal ileum, with identification of the appendiceal orifice and IC valve. The colonoscopy was performed without difficulty. The patient tolerated the procedure well. The quality of the bowel preparation was good. Findings: The perianal and digital rectal examinations were normal. Mild sigmoid diverticulosis and small internal hemorrhoids. The entire examined colon appeared normal on direct and retroflexion views. Impression: - Mild sigmoid diverticulosis and small internal hemorrhoids. - The entire examined colon is otherwise normal on direct and retroflexion views. - No specimens collected. Recommendation: - Repeat colonoscopy in 5 years for surveillance. Procedure Code(s): --- Professional --- 72401, Colonoscopy, flexible; diagnostic, including collection of specimen(s) by brushing or washing, when performed (separate procedure) Diagnosis Code(s): --- Professional --- Z86.010, Personal history of colonic polyps CPT copyright 2019 [place] [employer]. All rights reserved. The codes documented in this report are preliminary and upon screen tender review may be revised to meet current compliance requirements. Arun Melara MD Arun MELARA MD 07/03/2020 12:56:46 PM Electronically signed by Arun MELARA MD Number of Addenda: 0 Note Initiated On: 07/03/2020 12:29 PM Estimated Blood Loss: Estimated blood loss: none.
[2020-07-03 13:15] VITALS: BP 127/66
== END 2020-07-03 13:29 | disposition home or self-care (01) ==
LOC: M OPP 10:58
PROVIDERS: ATTEND Internal Medicine Gastroenterology
DX: Z12.11 Encounter for screening for malignant neoplasm of colon (principal); Z86.010 Personal history of colon polyps; K57.30 Diverticulosis of large intestine without perforation or abscess without bleeding; K64.8 Other hemorrhoids; F17.220 Nicotine dependence, chewing tobacco, uncomplicated

== ENCOUNTER → 2020-07-06 | Outpatient (REF) | payer OTHER | LOC: M SMT 17:16 | PROVIDERS: ATTEND Urology | DX: D49.4 Neoplasm of unspecified behavior of bladder (principal) ==

== ENCOUNTER → 2020-08-06 | Outpatient (CLI) | payer BC, OTHER ==
[2020-08-06 18:02] LABS: BLOOD UREA NITROGEN 22 MG/DL (7-18); CARBON DIOXIDE LEVEL 27 MEQ/L (21-32); CHLORIDE LEVEL 107 MEQ/L (98-107); CREATININE FOR GFR 0.98 MG/DL (0.70-1.30); GLOMERULAR FILTRATION RATE > 60.0 (>56); GLUCOSE, FASTING 85 MG/DL (70-100); POTASSIUM SERUM 4.3 MEQ/L (3.5-5.1); SODIUM LEVEL 140 MEQ/L (136-145)
[2020-08-06 18:20] LABS: HEMATOCRIT 44.7 % (42.0-52.0); HEMOGLOBIN 14.6 g/dl (13.5-17.5); MEAN CORPUSCULAR HEMOGLOBIN 28.7 pg (27.0-33.0); MEAN CORPUSCULAR HGB CONC 32.7 g/dl (32.0-36.5); PLATELET COUNT, AUTOMATED 310 10^3/uL (150-450); RED BLOOD COUNT 5.08 10^6/uL (4.30-6.10); WHITE BLOOD COUNT 8.4 10^3/uL (4.0-10.0)
--- NOTE | 2020-08-07 04:08 | REPPI ---
INDICATION: D49.4 BLADDER TUMOR COMPARISON: None. TECHNIQUE: PA and lateral. FINDINGS: The mediastinum and cardiac silhouette are normal. The lung reilly are clear and without acute consolidation, effusion, or pneumothorax. The skeletal structures are intact and normal. IMPRESSION: No acute cardiopulmonary process. <Electronically signed by Mode Walden > 08/07/20 0402
== END ==
LOC: M PLAIMG 14:45
PROVIDERS: ATTEND Urology
DX: R31.0 Gross hematuria (principal); D49.4 Neoplasm of unspecified behavior of bladder

== ENCOUNTER → 2020-08-08 | Outpatient (CLI) | payer OTHER | LOC: M LABSMTC 09:52 | PROVIDERS: ATTEND Anesthesiology | DX: Z01.812 Encounter for preprocedural laboratory examination (principal) ==

== ENCOUNTER 2020-08-13 11:57 | Day surgery (SDC) | payer BC, OTHER ==
[~2020-08-13] VITALS: Ht 188 cm; Wt 115.7 kg
[~2020-08-13 11:57] MED LIST changes: +LIDOCAINE 2% 100MG/5ML SDV (FOR ANES.) As Ordered ONE; +LR 1,000 ML IV ONE; +MIDAZOLAM INJ 2MG/2ML VIAL (J2250 PER 1MG) As Ordered ONE; -NS 1,000 ML IV ONE; +ONDANSETRON 4MG/2ML VIAL As Ordered ONE; +ROCURONIUM BROMIDE 50 MG/5 ML VIAL As Ordered ONE; +SUGAMMADEX SODIUM 500 MG/5 ML VIAL (BRIDION) As Ordered ONE; +ceFAZolin SOD 2 GM in IV 1 EA IV ONE; +dexameTHASONE 4 MG/ML 1ML VIAL (J1100 PER 1MG) As Ordered ONE; +ePHEDrine SULFATE 25 MG/5 ML(5MG/ML) SYRINGE As Ordered ONE; +fentaNYL 100 MCG/2 ML INJECTION (J3010) As Ordered ONE; +propofoL 200 MG/20 ML VIAL As Ordered ONE
[2020-08-13] MEDS ORDERED: CONRAY-60 60% 50ML VIAL (Q9961) As Ordered ONE (14:06)
[2020-08-13] MEDS ORDERED: propofoL 200 MG/20 ML VIAL As Ordered ONE (14:25)
[2020-08-13] MEDS ORDERED: METOCLOPRAMIDE INJ 10MG/2ML VIAL (J2765 PER 1) IV PRN (15:00)
[2020-08-13] MEDS ORDERED: ACETAMINOPHEN TAB 650MG DOSE (2X325MG) PO PRN (15:00)
[2020-08-13] MEDS ORDERED: LR 1,000 ML IV SCH (15:00)
[2020-08-13] MEDS ORDERED: PERCOCET 5MG/325MG TAB PO PRN (15:00)
[2020-08-13] MEDS ORDERED: fentaNYL 100 MCG/2 ML INJECTION (J3010) IV PRN (15:00)
[2020-08-13] MEDS ORDERED: ONDANSETRON 4MG/2ML VIAL IV PRN (15:00)
[2020-08-13] MEDS ORDERED: HYDROMORPHONE HCL 0.5 MG/ 0.5 ML SYRINGE (J1170 PER 1) IV PRN (15:00)
--- NOTE | 2020-08-13 15:05 | ECGEPIP ---
[facility] Test Date: 2020-08-13 Pat Name: MATT FELICIANO Department: Room: - Gender: Male Visual Presentation Manager: [facility] : 1965 Requested By: MARTA Sweeney Order Number: [id number] Reading MD: Serafin Ceron Measurements Intervals [place] Rate: 73 P: -14 WI: 168 QRS: -55 QRSD: 108 T: -13 QT: 396 QTc: 436 Interpretive Statements Normal sinus rhythm Extreme left axis deviation - left anterior hemiblock Incomplete right bundle branch block Prominent voltage aVL suggestive of LEFT VENTRICULAR HYPERTROPHY by Javier criteria No prior tracing for comparison. Clincal correlation advised Electronically Signed on 08-13-2020 15:05:26 EDT by Serafin Ceron
[2020-08-13] MEDS ORDERED: oxyBUTYnin 5 MG TAB PO SCH (15:25)
--- NOTE | 2020-08-13 15:35 | REP ---
INDICATION: BLADDER TUMOR. COMPARISON: CT 06/12/2020. TECHNIQUE: Six C-arm views abdomen and pelvis. FINDINGS: Left ureter is catheterized. Contrast is injected. No ureteral stricture is seen. Multiple small filling defects in the proximal left ureter are not definitely persistent and probably represent air bubbles. Left ureteral stent is placed, the proximal end coiled in the left renal pelvis and the distal end in the urinary bladder IMPRESSION: 34 seconds of fluoroscopy time was utilized. <Electronically signed by Orestes Up > 08/13/20 0223
--- NOTE | 2020-08-13 15:58 | RO ---
OPERATIVE NOTE DATE OF OPERATION: 08/13/2020 PREOPERATIVE DIAGNOSIS: Bladder cancer. POSTOPERATIVE DIAGNOSIS: Bladder cancer. PROCEDURE: Cystoscopy, transurethral resection of bladder tumor (between 2 and 5 cm), left retrograde pyelogram with intraoperative images, left ureteral stent placement. SURGEON: Rodger Greer MD IRRIGATION SYSTEM INSTALLER: None. ANESTHESIA: General. OPERATIVE INDICATIONS: This is a 54-year-old male who was found to have an approximately 3 cm sized tumor on office cystoscopy. 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 He is brought today to resect the remainder of the tumor. DESCRIPTION OF PROCEDURE: The patient was brought to the operating room and general anesthesia was induced. Prophylactic antibiotics were infused. He was placed in the dorsal lithotomy position and prepped and draped in the usual sterile fashion. A resectoscope was then inserted in the urethral meatus and advanced into the bladder using a visual obturator. The bladder was then thoroughly examined. The only abnormality seen was an approximately 3 cm sized tumor just lateral to the left ureteral orifice. At this point I resected the tumor completely. The first specimen was the superficial resection of the tumor and that was sent off as bladder tumor. The second specimen was the deeper resection of the tumor and that was sent off as a resection of the bladder tumor base. Because of the proximity of the tumor to the ureteral orifice, I did have to resect over the ureteral orifice. After all the tumor was removed, I then obtained hemostasis by cauterizing the area of resection. Once that was done since I resected over the ureteral orifice, the decision was made to place a ureteral stent. At this point a 5 [place] open-ended ureteral catheter was advanced into the left ureteral orifice. A retrograde pyelogram was performed. It was negative for hydronephrosis, extravasation or filling defects. I then advanced a guidewire up the left collecting system and removed the 5 [place] open-ended ureteral catheter. I then utilized the guidewire to advance a 7 [place] x 22-32 cm JJ ureteral stent into the left collecting system. The wire was removed and there were adequate curls of the stent in the left renal pelvis and in the bladder. At this point the resectoscope was removed and an 18 [place] Bob catheter was inserted into the bladder. The balloon was then filled with 10 mL of sterile water and the catheter was connected to gravity drainage. This marked the conclusion of the procedure. The patient was then taken out of the dorsal lithotomy position, awakened from anesthesia and transferred to the recovery room in stable condition ESTIMATED BLOOD LOSS: 5 mL. COMPLICATIONS: None. SPECIMEN: Bladder tumor, resection of bladder tumor base. PLAN: The patient will follow up in the Urology Clinic next week for catheter removal and pathology results. I will take his stent out in the office in three to four weeks. NETTE
[2020-08-13 16:45] VITALS: BP 158/94
== END 2020-08-13 16:45 | disposition home or self-care (01) ==
LOC: M SDC 11:57
PROVIDERS: ATTEND Urology
DX: C67.9 Malignant neoplasm of bladder, unspecified (principal); G43.909 Migraine, unspecified, not intractable, without status migrainosus; Z87.891 Personal history of nicotine dependence; M54.16 Radiculopathy, lumbar region
CPT/HCPCS: 52235; 52332; 74420; 88305; 93005; C1769; C2617; J0690; J1100; J2250; J2405; J3010; Q9961

== ENCOUNTER → 2020-10-08 | Outpatient (CLI) | payer BC, OTHER ==
--- NOTE | 2020-10-08 11:58 | REP ---
INDICATION: BLADDER CA. COMPARISON: CT 06/12/2020. TECHNIQUE: Real-time sonographic evaluation of the kidneys is performed. FINDINGS: Renal cortical echogenicity pattern is normal bilaterally and contours are smooth. No hydronephrosis bilaterally. No large calculus is seen. A cyst in the upper pole of the right kidney measures 1.3 cm in diameter. The right kidney measures 12.5 x 6.0 x 5.8 cm. Left renal dimensions are 13.9 x 5.5 x 6.0 cm. The urinary bladder is unremarkable. Prostate measures 4.4 x 3.5 x 2.8 cm, total volume 23 cc. IMPRESSION: Cyst upper pole right kidney. <Electronically signed by Orestes Up > 10/08/20 8882
== END ==
LOC: M RAD 11:14
PROVIDERS: ATTEND Specialist
DX: C67.9 Malignant neoplasm of bladder, unspecified (principal)

== ENCOUNTER → 2020-10-30 | Outpatient (REF) | payer OTHER ==
[2020-10-30 13:47] LABS: HEMOGLOBIN A1c 5.3 %
[2020-10-30 14:06] LABS: ALBUMIN 3.9 GM/DL (3.2-5.2); ALT/SGPT 31 U/L (12-78); BILIRUBIN,TOTAL 0.6 MG/DL (0.2-1.0); BLOOD UREA NITROGEN 19 MG/DL (7-18); CALCIUM LEVEL 9.3 MG/DL (8.5-10.1); CARBON DIOXIDE LEVEL 26 MEQ/L (21-32); CHLORIDE LEVEL 106 MEQ/L (98-107); CHOLESTEROL LEVEL 197 MG/DL (<200); CHOLESTEROL RISK RATIO 3.716 (<5); CREATININE FOR GFR 1.04 MG/DL (0.70-1.30); GLOMERULAR FILTRATION RATE > 60.0 (>56); GLUCOSE, FASTING 84 MG/DL (70-100); HDL CHOLESTEROL 53 MG/DL (>40); LDL CHOLESTEROL 127 MG/DL (<100); NON-HDL-C 144 MG/DL; POTASSIUM SERUM 4.6 MEQ/L (3.5-5.1); SODIUM LEVEL 138 MEQ/L (136-145); TOTAL 25(OH) VITAMIN D 19.6 NG/ML (30.0-100.0); TOTAL PROTEIN 8.2 GM/DL (6.4-8.2); TRIGLYCERIDES LEVEL 86 MG/DL (<150)
== END ==
LOC: M SFHCPLAZ 11:06
PROVIDERS: ATTEND Nurse Practitioner Family
DX: Z13.220 Encounter for screening for lipoid disorders (principal); N52.9 Male erectile dysfunction, unspecified; Z13.1 Encounter for screening for diabetes mellitus; E55.9 Vitamin D deficiency, unspecified

== ENCOUNTER → 2020-12-07 | Outpatient (REF) | payer OTHER | LOC: M SMT 13:09 | PROVIDERS: ATTEND Urology | DX: C67.9 Malignant neoplasm of bladder, unspecified (principal) ==

== ENCOUNTER → 2020-12-25 | Outpatient (CLI) | payer BC, OTHER ==
[2020-12-25 14:10] LABS: BLOOD UREA NITROGEN 26 MG/DL (7-18); CALCIUM LEVEL 8.8 MG/DL (8.5-10.1); CARBON DIOXIDE LEVEL 26 MEQ/L (21-32); CHLORIDE LEVEL 105 MEQ/L (98-107); CREATININE FOR GFR 1.12 MG/DL (0.70-1.30); GLOMERULAR FILTRATION RATE > 60.0 (>56); GLUCOSE, FASTING 91 MG/DL (70-100); POTASSIUM SERUM 4.5 MEQ/L (3.5-5.1); SODIUM LEVEL 136 MEQ/L (136-145)
[2020-12-25 15:56] LABS: MALB URINE SIEMENS 7.2 MG/L; MAU/CREAT RATIO 6.6 MCG/MG (0.0-30.0)
== END ==
LOC: M PLALAB 11:24
PROVIDERS: ATTEND Nurse Practitioner Family
DX: I10 Essential (primary) hypertension (principal)

== ENCOUNTER → 2021-02-01 | Outpatient (CLI) | payer BC, OTHER ==
[2021-02-01 10:58] LABS: BLOOD UREA NITROGEN 17 MG/DL (7-18); CALCIUM LEVEL 8.6 MG/DL (8.5-10.1); CARBON DIOXIDE LEVEL 27 MEQ/L (21-32); CHLORIDE LEVEL 108 MEQ/L (98-107); CREATININE FOR GFR 1.12 MG/DL (0.70-1.30); GLOMERULAR FILTRATION RATE > 60.0 (>56); GLUCOSE, FASTING 100 MG/DL (70-100); POTASSIUM SERUM 4.2 MEQ/L (3.5-5.1); SODIUM LEVEL 138 MEQ/L (136-145)
[2021-02-01 12:22] LABS: TOTAL 25(OH) VITAMIN D 29.5 NG/ML (30.0-100.0)
== END ==
LOC: M PLALAB 08:23
PROVIDERS: ATTEND Nurse Practitioner Family
DX: E55.9 Vitamin D deficiency, unspecified (principal); I10 Essential (primary) hypertension

== ENCOUNTER → 2021-02-24 | Outpatient (REF) | payer BC, OTHER | LOC: M LAB REF 19:25 | PROVIDERS: ATTEND Physician Assistant | DX: J06.9 Acute upper respiratory infection, unspecified (principal); Z20.828 Contact with and (suspected) exposure to other viral communicable diseases ==

== ENCOUNTER → 2021-05-04 | Outpatient (REF) | payer BC, OTHER | LOC: M SMT 16:56 | PROVIDERS: ATTEND Urology | DX: C67.9 Malignant neoplasm of bladder, unspecified (principal) ==

== ENCOUNTER → 2021-07-26 | Outpatient (REF) | payer BC, OTHER | LOC: M SMT 12:33 | PROVIDERS: ATTEND Urology | DX: C67.9 Malignant neoplasm of bladder, unspecified (principal) ==

== ENCOUNTER → 2021-09-16 | Outpatient (CLI) | payer BC, OTHER | LOC: M PLALAB 09:43 | PROVIDERS: ATTEND Urology | DX: Z12.5 Encounter for screening for malignant neoplasm of prostate (principal) ==

== ENCOUNTER → 2021-09-16 | Outpatient (CLI) | payer BC, OTHER ==
[2021-09-16 13:35] LABS: BASO # 0.1 10^3/uL (0.0-0.2); BASO % 1.3 % (0.0-1.0); EOS # 0.3 10^3/uL (0.0-0.5); HEMATOCRIT 44.5 % (42.0-52.0); HEMOGLOBIN 14.9 g/dl (13.5-17.5); LYMPH # 2.2 10^3/uL (1.5-5.0); LYMPH % 34.2 % (24.0-44.0); MEAN CORPUSCULAR HEMOGLOBIN 29.3 pg (27.0-33.0); MEAN CORPUSCULAR HGB CONC 33.5 g/dl (32.0-36.5); MEAN CORPUSCULAR VOLUME 87.4 fl (80.0-96.0); MONO # 0.5 10^3/uL (0.0-0.8); MONO % 8.4 % (2.0-8.0); NEUTROPHILS # 3.3 10^3/uL (1.5-8.5); NEUTROPHILS % 51.8 % (36.0-66.0); PLATELET COUNT, AUTOMATED 296 10^3/uL (150-450); RED BLOOD COUNT 5.09 10^6/uL (4.30-6.10); WHITE BLOOD COUNT 6.3 10^3/uL (4.0-10.0)
[2021-09-16 14:28] LABS: ALBUMIN 3.9 GM/DL (3.2-5.2); ALT/SGPT 25 U/L (12-78); BILIRUBIN,TOTAL 0.5 MG/DL (0.2-1.0); BLOOD UREA NITROGEN 19 MG/DL (7-18); CALCIUM LEVEL 9.1 MG/DL (8.5-10.1); CARBON DIOXIDE LEVEL 27 MEQ/L (21-32); CHLORIDE LEVEL 106 MEQ/L (98-107); CHOLESTEROL LEVEL 167 MG/DL (<200); CHOLESTEROL RISK RATIO 3.211 (<5); CREATININE FOR GFR 1.09 MG/DL (0.70-1.30); GLOMERULAR FILTRATION RATE > 60.0 (>56); GLUCOSE, FASTING 84 MG/DL (70-100); HDL CHOLESTEROL 52 MG/DL (>40); LDL CHOLESTEROL 100 MG/DL (<100); NON-HDL-C 115 MG/DL; POTASSIUM SERUM 4.5 MEQ/L (3.5-5.1); PTH INTACT 32.8 PG/ML (18.5-88.0); SODIUM LEVEL 137 MEQ/L (136-145); TOTAL PROTEIN 7.8 GM/DL (6.4-8.2); TRIGLYCERIDES LEVEL 76 MG/DL (<150)
== END ==
LOC: M PLALAB 09:41
PROVIDERS: ATTEND Physician Assistant Medical
DX: E78.00 Pure hypercholesterolemia, unspecified (principal)

== ENCOUNTER → 2022-01-31 | Outpatient (REF) | payer OTHER, BC | LOC: M SMT 12:55 | PROVIDERS: ATTEND Urology | DX: C67.9 Malignant neoplasm of bladder, unspecified (principal) ==

== ENCOUNTER → 2022-08-05 | Outpatient (REF) | payer OTHER, BC | LOC: M SMT 17:07 | PROVIDERS: ATTEND Urology | DX: C67.9 Malignant neoplasm of bladder, unspecified (principal) ==

== ENCOUNTER → 2022-08-18 | Outpatient (CLI) | payer BC, OTHER ==
[2022-08-18 12:08] LABS: ALBUMIN 3.7 G/DL (3.2-5.2); ALKALINE PHOSPHATASE 61 U/L (46-116); ALT/SGPT 25 U/L (7.0-40); AST/SGOT 18 U/L (<34); BILIRUBIN,TOTAL 0.5 MG/DL (0.3-1.2); BLOOD UREA NITROGEN 21 MG/DL (9-23); CALCIUM LEVEL 9.2 MG/DL (8.5-10.1); CARBON DIOXIDE LEVEL 28 MMOL/L (20-31); CHLORIDE LEVEL 107 MMOL/L (98-107); CHOLESTEROL LEVEL 155 MG/DL (<200); CHOLESTEROL RISK RATIO 3.11 (<5); CREATININE FOR GFR 0.97 MG/DL (0.70-1.30); GLOMERULAR FILTRATION RATE > 60.0 (>56); GLUCOSE, FASTING 83 MG/DL (60-100); HDL CHOLESTEROL 49.7 MG/DL (>40); LDL CHOLESTEROL 88.5 MG/DL (<100); NON-HDL-C 105.3 MG/DL; POTASSIUM SERUM 4.5 MMOL/L (3.5-5.1); SODIUM LEVEL 139 MMOL/L (136-145); TOTAL PROTEIN 7.3 G/DL (5.7-8.2); TRIGLYCERIDES LEVEL 84 MG/DL (<150)
[2022-08-18 12:12] LABS: TOTAL 25(OH) VITAMIN D 26.5 NG/ML (20.0-100.0)
[2022-08-18 12:39] LABS: PTH INTACT 41.5 PG/ML (18.5-88.0)
[2022-08-18 15:10] LABS: BASO # 0.1 10^3/uL (0.0-0.2); BASO % 1.1 % (0.0-1.0); EOS # 0.2 10^3/uL (0.0-0.5); EOS % 3.5 % (0.0-3.0); HEMATOCRIT 46.1 % (42.0-52.0); HEMOGLOBIN 15.1 g/dl (13.5-17.5); LYMPH # 1.9 10^3/uL (1.5-5.0); LYMPH % 29.2 % (24.0-44.0); MEAN CORPUSCULAR HEMOGLOBIN 28.9 pg (27.0-33.0); MEAN CORPUSCULAR HGB CONC 32.8 g/dl (32.0-36.5); MEAN CORPUSCULAR VOLUME 88.1 fl (80.0-96.0); MONO # 0.5 10^3/uL (0.0-0.8); MONO % 8.3 % (2.0-8.0); NEUTROPHILS # 3.8 10^3/uL (1.5-8.5); NEUTROPHILS % 57.6 % (36.0-66.0); PLATELET COUNT, AUTOMATED 293 10^3/uL (150-450); RED BLOOD COUNT 5.23 10^6/uL (4.30-6.10); WHITE BLOOD COUNT 6.5 10^3/uL (4.0-10.0)
== END ==
LOC: M PLALAB 08:27
PROVIDERS: ATTEND Physician Assistant Medical
DX: I10 Essential (primary) hypertension (principal)

== ENCOUNTER → 2023-02-21 | Outpatient (CLI) | payer BC, OTHER ==
[2023-02-21 14:02] LABS: BASO # 0.1 10^3/uL (0.0-0.2); BASO % 1.1 % (0.0-1.0); EOS # 0.2 10^3/uL (0.0-0.5); EOS % 2.4 % (0.0-3.0); HEMATOCRIT 43.2 % (42.0-52.0); HEMOGLOBIN 14.6 g/dl (13.5-17.5); LYMPH # 1.9 10^3/uL (1.5-5.0); LYMPH % 29.7 % (24.0-44.0); MEAN CORPUSCULAR HEMOGLOBIN 29.8 pg (27.0-33.0); MEAN CORPUSCULAR HGB CONC 33.8 g/dl (32.0-36.5); MEAN CORPUSCULAR VOLUME 88.2 fl (80.0-96.0); MONO # 0.6 10^3/uL (0.0-0.8); MONO % 9.6 % (2.0-8.0); NEUTROPHILS # 3.6 10^3/uL (1.5-8.5); NEUTROPHILS % 56.9 % (36.0-66.0); PLATELET COUNT, AUTOMATED 337 10^3/uL (150-450); WHITE BLOOD COUNT 6.4 10^3/uL (4.0-10.0)
[2023-02-21 14:06] LABS: ALBUMIN 3.7 G/DL (3.2-5.2); ALKALINE PHOSPHATASE 61 U/L (46-116); ALT/SGPT 29 U/L (7.0-40); AST/SGOT 18 U/L (<34); BILIRUBIN,TOTAL 0.3 MG/DL (0.3-1.2); BLOOD UREA NITROGEN 21 MG/DL (9-23); CALCIUM LEVEL 9.2 MG/DL (8.5-10.1); CARBON DIOXIDE LEVEL 28 MMOL/L (20-31); CHLORIDE LEVEL 107 MMOL/L (98-107); CREATININE FOR GFR 0.93 MG/DL (0.70-1.30); GLOMERULAR FILTRATION RATE > 60.0 (>56); GLUCOSE, FASTING 89 MG/DL (60-100); POTASSIUM SERUM 5.2 MMOL/L (3.5-5.1); PTH INTACT 37.2 PG/ML (18.5-88.0); SODIUM LEVEL 139 MMOL/L (136-145); TOTAL PROTEIN 7.5 G/DL (5.7-8.2)
[2023-02-21 14:07] LABS: THYROID STIMULATING HORMONE 4.525 uIU/ML (0.55-4.78)
[2023-02-21 14:08] LABS: FREE T4 0.99 NG/DL (0.89-1.76)
== END ==
LOC: M PLALAB 09:32
PROVIDERS: ATTEND Physician Assistant Medical
DX: I10 Essential (primary) hypertension (principal)

== ENCOUNTER → 2023-05-09 | Outpatient (CLI) | payer BC, OTHER ==
[2023-05-09 14:29] LABS: THYROID STIMULATING HORMONE 5.325 uIU/ML (0.55-4.78)
[2023-05-09 14:31] LABS: FREE T4 1.11 NG/DL (0.89-1.76)
== END ==
LOC: M PLALAB 10:08
PROVIDERS: ATTEND Physician Assistant Medical
DX: N52.9 Male erectile dysfunction, unspecified (principal)

== ENCOUNTER → 2023-09-04 | Outpatient (REF) | payer BC, OTHER | LOC: M SMT 12:58 | PROVIDERS: ATTEND Urology | DX: C64.9 Malignant neoplasm of unspecified kidney, except renal pelvis (principal) ==

== ENCOUNTER → 2023-10-31 | Outpatient (CLI) | payer BC, OTHER ==
[2023-10-31 13:00] LABS: THYROID STIMULATING HORMONE 6.099 uIU/ML (0.55-4.78)
[2023-10-31 13:01] LABS: FREE T4 1.2 NG/DL (0.89-1.76)
== END ==
LOC: M PLALAB 08:45
PROVIDERS: ATTEND Physician Assistant Medical
DX: E66.9 Obesity, unspecified (principal)

== ENCOUNTER → 2024-03-13 | Outpatient (CLI) | payer BC, OTHER ==
[2024-03-13 17:54] LABS: BASO # 0.1 10^3/uL (0.0-0.2); BASO % 0.8 % (0.0-1.0); EOS # 0.1 10^3/uL (0.0-0.5); EOS % 1.9 % (0.0-3.0); HEMATOCRIT 45.4 % (42.0-52.0); HEMOGLOBIN 15.3 g/dl (13.5-17.5); LYMPH # 1.8 10^3/uL (1.5-5.0); LYMPH % 25.1 % (24.0-44.0); MEAN CORPUSCULAR HEMOGLOBIN 29.1 pg (27.0-33.0); MEAN CORPUSCULAR HGB CONC 33.7 g/dl (32.0-36.5); MEAN CORPUSCULAR VOLUME 86.5 fl (80.0-96.0); MONO # 0.6 10^3/uL (0.0-0.8); MONO % 8.3 % (2.0-8.0); NEUTROPHILS # 4.6 10^3/uL (1.5-8.5); NEUTROPHILS % 63.6 % (36.0-66.0); PLATELET COUNT, AUTOMATED 323 10^3/uL (150-450); RED BLOOD COUNT 5.25 10^6/uL (4.30-6.10); WHITE BLOOD COUNT 7.3 10^3/uL (4.0-10.0)
[2024-03-13 18:17] LABS: HEMOGLOBIN A1c 5.1 % (4.0-6.0)
[2024-03-13 18:20] LABS: ALBUMIN 3.5 G/DL (3.2-5.2); ALKALINE PHOSPHATASE 69 U/L (40-129); ALT/SGPT 26 U/L (7.0-40); AST/SGOT 13 U/L (<34); BILIRUBIN,TOTAL 0.3 MG/DL (0.3-1.2); BLOOD UREA NITROGEN 15 MG/DL (9-23); CALCIUM LEVEL 9.6 MG/DL (8.3-10.6); CARBON DIOXIDE LEVEL 25 MMOL/L (20-31); CHLORIDE LEVEL 107 MMOL/L (98-107); CHOLESTEROL LEVEL 186 MG/DL (<200); CHOLESTEROL RISK RATIO 3.25 (<5); CREATININE FOR GFR 1.04 MG/DL (0.70-1.30); GLOMERULAR FILTRATION RATE > 60.0 (>49); GLUCOSE, FASTING 103 MG/DL (74-106); HDL CHOLESTEROL 57.1 MG/DL (>40); LDL CHOLESTEROL 99.7 MG/DL (<100); NON-HDL-C 128.9 MG/DL; POTASSIUM SERUM 4.1 MMOL/L (3.5-5.1); PSA SCREENING 0.98 NG/ML (< 4.00); SODIUM LEVEL 138 MMOL/L (136-145); TRIGLYCERIDES LEVEL 146 MG/DL (<150)
[2024-03-13 18:22] LABS: FREE T4 1.19 NG/DL (0.89-1.76); THYROID STIMULATING HORMONE 4.795 uIU/ML (0.55-4.78); TOTAL 25(OH) VITAMIN D 20.6 NG/ML (20.0-100.0)
== END ==
LOC: M PLAIMG 14:14
PROVIDERS: ATTEND Physician Assistant Medical
DX: E04.9 Nontoxic goiter, unspecified (principal); E03.9 Hypothyroidism, unspecified

== ENCOUNTER → 2024-07-08 | Outpatient (CLI) | payer BC ==
[2024-07-08 11:56] LABS: FREE T4 1.36 NG/DL (0.89-1.76); THYROID STIMULATING HORMONE 3.585 uIU/ML (0.55-4.78)
== END ==
LOC: M PLALAB 08:23
PROVIDERS: ATTEND Physician Assistant Medical
DX: E03.9 Hypothyroidism, unspecified (principal)

== ENCOUNTER → 2024-09-02 | Outpatient (REF) | payer BC, OTHER | LOC: M SMT 13:15 | PROVIDERS: ATTEND Urology | DX: C67.9 Malignant neoplasm of bladder, unspecified (principal) ==

== ENCOUNTER → 2024-11-15 | Outpatient (CLI) | payer BC ==
[2024-11-15 17:15] LABS: FREE T4 1.3 NG/DL (0.89-1.76)
== END ==
LOC: M PLALAB 14:15
PROVIDERS: ATTEND Physician Assistant Medical
DX: E78.00 Pure hypercholesterolemia, unspecified (principal)